=== PATIENT | female | born 1955 ===

== ENCOUNTER 2017-08-28 06:46 | Day surgery (SDC) | payer BC ==
[2017-08-23 10:57] VITALS: BMI 33.0
[2017-08-28 07:29] VITALS: TEMP 98.1
[2017-08-28] MEDS ORDERED: Lidocaine 1% Inj (20ml) ONE (07:47)
[2017-08-28] MEDS ORDERED: Etomidate 20 mg/10ml Inj IV ONE (07:47)
[2017-08-28] MEDS ORDERED: Propofol 10 mg/ml Inj (20 ML) ONE (07:48)
[2017-08-28 07:53] LABS: BASO # 0.03 K/mm3 (0.0-2.0); BASO % 0.6 % (0.0-3.0); EOS # 0.3 (0.0-0.7); EOS % 6.5 % (1.5-5.0); GRAN # 2.02 (1.4-6.5); GRAN % 41.2 % (50.0-68.0); HEMOGLOBIN 13.1 g/dL (12.0-16.0); LYMPH # 2.2 (1.2-3.4); LYMPH % 45.2 % (22.0-35.0); MEAN CORPUSCULAR HGB CONC 33.7 g/dl (31.0-37.0); MEAN PLATELET VOLUME 10.1 fl (7.0-11.0); MONO # 0.3 (0.1-0.6); MONO % 6.5 % (1.0-6.0); RBC 4.37 10^6/uL (3.5-6.1); RED CELL DISTRIBUTION WIDTH 13.2 % (11.5-14.5); WHITE BLOOD COUNT 4.9 10^3/ul (4.5-11.0)
[2017-08-28 08:03] LABS: INR 1.05 (0.93-1.08); PARTIAL THROMBOPLASTIN TIME 29.4 Seconds (25.1-36.5); PROTHROMBIN TIME 12.1 SECONDS (9.4-12.5)
[2017-08-28] MEDS ORDERED: Lactated Ringer's 1,000 ML IV SCH (08:45)
[2017-08-28 09:12] VITALS: O2SAT 100
[2017-08-28 09:31] VITALS: RESP 18
[2017-08-28 09:40] VITALS: BP 114/63; PULSE 55
== END 2017-08-28 10:08 | disposition home or self-care (01) ==
LOC: ENDO 06:46
PROVIDERS: ATTEND Internal Medicine Gastroenterology
DX: Z12.11 Encounter for screening for malignant neoplasm of colon (principal); K63.5 Polyp of colon; K64.8 Other hemorrhoids; K63.89 Other specified diseases of intestine
CPT/HCPCS: 36415; 45384; 85025; 85610; 85730; 88305; J2704; J2765; J7040; J7120